=== PATIENT | female | born 1975 | race Caucasian/White ===

== ENCOUNTER → 2024-08-16 06:55 | Outpatient (BNVA) | payer OTHER, SELFPAY | PROVIDERS: Visit Provider Family Medicine | DX: Z00.00 Encounter for general adult medical examination without abnormal findings (principal) | CPT/HCPCS: 80053; 80061; 83036; 84443; 85025 ==

== ENCOUNTER → 2024-09-28 07:23 | Outpatient (BNVA) | payer OTHER, SELFPAY | PROVIDERS: Visit Provider Family Medicine | DX: Z12.4 Encounter for screening for malignant neoplasm of cervix (principal) | CPT/HCPCS: 87624 ==

== ENCOUNTER 2024-10-15 06:47 | Day surgery (SDC) | payer OTHER, SELFPAY ==
[2024-10-15 07:08] VITALS: BP 119/87; PULSE 75; RESP 18; TEMP 36.5; O2SAT 97; BMI 41.3
[2024-10-15] MEDS: sodium chloride 0.9% 1,000 ML 30 ML IV (07:13)
[2024-10-15 07:18] LABS: OR HCG Qualitative Urine Negative (Negative)
--- NOTE | 2024-10-15 07:35 | P.ANESASSM_ITS ---
Pre-Anesthetic Assessment Height/Weight: Height 1.63 m Weight 109.316 kg Temp Pulse Resp BP Pulse Ox O2 Del Method 97.7 F 75 18 119/87 97 Room Air 10/15/24 07:08 10/15/24 07:08 10/15/24 07:08 10/15/24 07:08 10/15/24 07:08 10/15/24 07:08 Preop Diagnosis: screening Operation Date: 10/15/24 07:45 Proposed Procedures p Colonoscopy 78896, G0121, Z12.11(Not Applicable) - Luís Love MD Familial anesthetic complications: had trouble waking up from anesthesia afer carpal tunnel many years ago Was Beta [place] taken within 24 hours: N/A Was Clonidine taken within 24 hours: N/A Last intake: Intake Last Liquid Date 10/14/24 Last Liquid Time 23:30 Last Solid Date 10/13/24 Last Solid Time 21:00 Social No alcohol and No tobacco Exam alert and oriented x 3 Airway Submandibular: within normal limits Cervical ROM: within normal limits Mallampati: Class II Dentition: full History/ROS No significant history except as noted Pulmonary None reported CV/HEM None reported None reported Hepatic None reported GI Gastroesophageal Reflux Disease Metabolic Morbid Obesity [facility] [place]/[facility] None reported Neuropsych Anxiety and Depression Anesthetic Plan ASA status: 3 Anesthesia: Anesthesia Evaluation and MAC Medications/Allergies Home Medications Medication Instructions Recorded Confirmed Last Taken Type aripiprazole 5 mg tablet 5 mg PO DAILY #30 tabs 08/15/24 10/10/24 10/13/24 Rx bupropion HCl 150 mg tablet,12 hr 300 mg (2 x 150 mg) PO QAM #60 tabs 08/15/24 10/10/24 10/13/24 Rx sustained-release escitalopram oxalate 20 mg tablet 40 mg (2 x 20 mg) PO DAILY #60 tabs 08/15/24 10/10/24 10/13/24 Rx pantoprazole 40 mg tablet,delayed 40 mg PO DAILY #30 tabs 08/15/24 10/10/24 10/13/24 Rx release phentermine 37.5 mg capsule 37.5 mg PO DAILY 08/15/24 10/10/24 10/06/24 History semaglutide 0.25 mg or 0.5 mg (2 2 mg SUBCUT Q7D 08/15/24 10/10/24 10/03/24 History mg/1.5 mL) subcutaneous pen injector topiramate 100 mg tablet 200 mg (2 x 100 mg) PO DAILY #60 08/15/24 10/10/24 10/13/24 Rx tabs ubrogepant 100 mg tablet (Ubrelvy) 100 mg PO ONCE PRN migraine 08/15/24 10/10/24 3 Months Ago Rx headache #10 tabs ~07/15/24 ondansetron 4 mg disintegrating 4 mg PO Q6H PRN nausea and 09/19/24 10/15/24 3 Months Ago Rx tablet vomiting #30 tabs ~07/15/24 prednisone 10 mg tablet 10 mg PO DAILY 5 days #5 tabs 10/08/24 10/10/24 10/13/24 Rx Allergies Allergy/AdvReac Type Severity Reaction Status Date / Time No Known Allergies Allergy Verified 10/10/24 09:22 Current Medications Generic Name Dose Route Start Last Admin Trade Name Freq PRN Reason Stop Dose Admin Sodium Chloride 1,000 mls @ 30 mls/hr 10/15/24 07:00 10/15/24 07:13 Sodium Chloride 0.9% IV 30 mls/hr .Q24H EDY Administration PFSH Anesthesia Medical History (Updated 09/09/24 @ 16:48 by Alondra Mills MD) GERD (gastroesophageal reflux disease) Major depression History of pre-eclampsia History of diverticulitis Migraines Surgical History History of endometrial ablation History of bilateral carpal tunnel release Family History Mother , CHAVEZ - 62 Liver disease Diabetes mellitus, type 2 Thyroid disease Grandfather Hypertension Chronic kidney disease (CKD) Social History Smoking and tobacco/nicotine status: never used tobacco/nicotine Alcohol intake: current Alcohol intake frequency: few times a month Substance/Drug Use: never Lives independently: Yes Household members: spouse and children Marital status: Number of children: 2 Number of grandchildren: 6 Current occupational status: employed Current occupation: MA at [employer] Family Care Juanita/Lutheran: Presybeterian Special juanita needs: No Agree to transfusion: Yes Data Anesthesia Cardiac Studies: No Data to Display
--- NOTE | 2024-10-15 07:51 | P.HP_ITS ---
Same Day Surgery H&P Indication for Procedure/HPI DATE OF PROCEDURE: October 15, 2024 CHIEF COMPLAINT/INDICATIONFOR SURGICAL PROCEDURE: screening colonoscopy PREOP DIAGNOSIS: screening colonoscopy PLANNED PROCEDURE: Operation Date: 10/15/24 07:45 Proposed Procedures p Colonoscopy 00219, G0121, Z12.11(Not Applicable) - Luís Love MD Medications/Allergies* Home Medications Medication Instructions Recorded Confirmed Type phentermine 37.5 mg capsule 37.5 mg PO DAILY 08/15/24 10/10/24 History semaglutide 0.25 mg or 0.5 mg (2 2 mg SUBCUT Q7D 08/15/24 10/10/24 History mg/1.5 mL) subcutaneous pen injector Allergies/Adverse Reactions Allergy/AdvReac Type Severity Reaction Status Date / Time No Known Allergies Allergy Verified 10/10/24 09:22 Current Medications: Generic Name Dose Route Start Last Admin Trade Name Freq PRN Reason Stop Dose Admin Sodium Chloride 1,000 mls @ 30 mls/hr 10/15/24 07:00 10/15/24 07:13 Sodium Chloride 0.9% IV 30 mls/hr .Q24H EDY Administration Pertinent History/Comorbid Conditions* Medical History (Updated 09/09/24 @ 16:48 by Alondra Mills MD) GERD (gastroesophageal reflux disease) Major depression History of pre-eclampsia History of diverticulitis Migraines Surgical History (Updated 08/15/24 @ 13:08 by Alondra Mills MD) History of endometrial ablation History of bilateral carpal tunnel release Family History (Updated 08/15/24 @ 13:20 by Alondra Mills MD) Mother, CHAVEZ - 62 Liver disease Mother Diabetes mellitus, type 2 Mother Chronic kidney disease (CKD) Grandfather Hypertension Grandfather Thyroid disease Mother Social History Smoking and tobacco/nicotine status: never used tobacco/nicotine Alcohol intake: current Alcohol intake frequency: few times a month Substance/Drug Use: never Lives independently: Yes Household members: spouse and children Marital status: Number of children: 2 Number of grandchildren: 6 Current occupational status: employed Current occupation: MA at [employer] Family Care Juanita/Buddhism: Restorationism Special juanita needs: No Agree to transfusion: Yes Pertinent Exam Findings alert, oriented x 3, clear to auscultation bilaterally, regular rate & rhythm and procedure specific exam findings Abdomen soft, nt, nd Recommendations Surgery/Procedure today Coding Level of Care Code Acute Code for g Fwd
[2024-10-15 08:11] VITALS: BP 97/61; PULSE 72; RESP 18; TEMP 36.6; O2SAT 95
--- NOTE | 2024-10-15 08:21 | ANE.PACU2 ---
Inpatient post-anesthesia follow up: Airway intact: Yes Vital signs: Temperature 97.8 F Pulse Rate 72 Respiratory Rate 18 Blood Pressure 97/61 Pulse Oximetry 95 Oxygen Delivery Me thod Room Air Oxygen Flow Rate Fraction of Inspir ed Oxygen Hydration adequate: Yes Nausea and vomiting: No Pain level: 1 Mental status: Baseline
[2024-10-15 08:26] VITALS: BP 96/61; PULSE 73; RESP 18; O2SAT 97
[2024-10-15 08:35] VITALS: BP 108/77; PULSE 76; RESP 18; O2SAT 96
== END 2024-10-15 09:08 | disposition home or self-care (01) ==
PROVIDERS: Anesthesiology; PCP Family Medicine; Visit Provider Student in an Organized Health Care Education/Training Program
PROC: 0DJD8ZZ Inspection of Lower Intestinal Tract, Via Natural or Artificial Opening Endoscopic (ICD-10-PCS; CPT 45378; principal; 2024-10-15 07:45)
DX: Z12.11 Encounter for screening for malignant neoplasm of colon (principal); K57.30 Diverticulosis of large intestine without perforation or abscess without bleeding; D12.3 Benign neoplasm of transverse colon; K21.9 Gastro-esophageal reflux disease without esophagitis; F32.A Depression, unspecified; E66.01 Morbid (severe) obesity due to excess calories; Z68.41 Body mass index [BMI] 40.0-44.9, adult
CPT/HCPCS: 45380; 45385; 81025; 88305; J2704; J7030

== ENCOUNTER → 2025-06-07 07:02 | Outpatient (BNVA) | payer OTHER, SELFPAY | PROVIDERS: PCP Family Medicine; Visit Provider Family Medicine | DX: Z01.89 Encounter for other specified special examinations (principal); R53.83 Other fatigue | CPT/HCPCS: 82533 ==

== ENCOUNTER → 2025-11-01 08:08 | Outpatient (BNVA) | payer OTHER, SELFPAY | PROVIDERS: PCP Family Medicine; Visit Provider Family Medicine | DX: Z00.00 Encounter for general adult medical examination without abnormal findings (principal) | CPT/HCPCS: 80053; 80061; 84443; 85025 ==